=== PATIENT | female | born 1970 | race Caucasian/White ===

== ENCOUNTER 2017-10-10 02:36 | Emergency (ER) | payer MEDICAID ==
[~2017-10-10] VITALS: Ht 165.1 cm; Wt 75.2 kg
[~2017-10-10 02:36] MED LIST: HYDR-565 PO; LEVO500T2 PO; OXYB5TAB11 PO; TAMS0.4C32 PO
[2017-10-10] MEDS ORDERED: ketorolac trometh. 30mg/ml inj. IM ONE (02:55)
[2017-10-10 03:28] LABS: CLARITY,URINE SLIGHTLY CLOUDY (Clear); COLOR,URINE YELLOW (Yellow); GLUCOSE, URINE NEGATIVE (Neg); KETONES,URINE NEGATIVE (Neg); LEUKOCYTE ESTERASE ,URINE SMALL (Neg); NITRITES, URINE POSITIVE (Neg); OCCULT BLOOD,URINE SMALL (Neg); PROTEIN,URINE TRACE mg/dl (Neg); UROBILINOGEN,URINE 0.2 E.U/dL (0.2-1.0)
[2017-10-10 03:39] LABS: UA COLLECTION TYPE CLN CATCH MIDSTREAM
[2017-10-10 03:40] LABS: BACTERIA,URINE 1+ /HPF (Neg); SQUAMOUS EPITHELIAL CELL,UR FEW /LPF (FEW)
[2017-10-10 03:55] VITALS: BP 122/76
[2017-10-10] MEDS ORDERED: CEPH500C5 PO (04:00)
[2017-10-10] MEDS ORDERED: cephalexin 250mg capsule PO ONE (04:00)
== END 2017-10-10 04:26 | disposition home or self-care (01) ==
LOC: ER 02:37
DX: R10.32 Left lower quadrant pain (principal); R11.0 Nausea; F17.200 Nicotine dependence, unspecified, uncomplicated; Z87.442 Personal history of urinary calculi; Z90.49 Acquired absence of other specified parts of digestive tract; Z90.710 Acquired absence of both cervix and uterus; Z98.890 Other specified postprocedural states; Z86.19 Personal history of other infectious and parasitic diseases; Z79.899 Other long term (current) drug therapy
CPT/HCPCS: 81001; 87088; 96372; 99284; J1885

== ENCOUNTER 2019-09-16 20:20 | Emergency (ER) | payer MEDICAID ==
[~2019-09-16] VITALS: Ht 165.1 cm; Wt 80.0 kg
[~2019-09-16 20:20] MED LIST changes: +HYDR-4353 PO; -HYDR-565 PO; -OXYB5TAB11 PO; +OXYB5TAB16 PO
[2019-09-16] MEDS ORDERED: propofol 10mg/ml 20ml vial IV ONE (21:25)
[2019-09-16] MEDS ORDERED: morphine 4 MG/ML inj SYRINge IV ONE (21:25)
[2019-09-16] MEDS ORDERED: HYDR-3965 PO (22:22)
--- NOTE | 2019-09-16 22:42 | NUR ---
DURING MODERATE SEDATION, STEPHEN ARIAS GAVE TOTAL 200MG PROPOFOL IV. EDMD PULLED FROM AVAILABLE PREVIOUS VIAL AND ADMINISTERED. UNABLE TO INPUT ORDER IN EMAR NOT AVAILABLE.
[2019-09-16 22:45] VITALS: BP 130/82
== END 2019-09-16 22:58 | disposition home or self-care (01) ==
LOC: ER 20:21
DX: S43.004A Unspecified dislocation of right shoulder joint, initial encounter (principal); M25.511 Pain in right shoulder; F17.200 Nicotine dependence, unspecified, uncomplicated; Z86.19 Personal history of other infectious and parasitic diseases; Z87.11 Personal history of peptic ulcer disease; Z87.442 Personal history of urinary calculi; Z87.440 Personal history of urinary (tract) infections; Z90.49 Acquired absence of other specified parts of digestive tract; Z90.710 Acquired absence of both cervix and uterus; Z98.890 Other specified postprocedural states; Z79.2 Long term (current) use of antibiotics; Z79.899 Other long term (current) drug therapy; W01.0XXA Fall on same level from slipping, tripping and stumbling without subsequent striking against object, initial encounter; Y93.89 Activity, other specified; Y92.89 Other specified places as the place of occurrence of the external cause; Y99.8 Other external cause status
CPT/HCPCS: 23650; 73030; 96374; 99152; 99153; 99285; J2270; 94760

== ENCOUNTER 2021-10-06 20:50 | Emergency (ER) | payer MEDICAID ==
[~2021-10-06] VITALS: Ht 165.1 cm; Wt 90.3 kg
[2021-10-06 21:23] LABS: BASOPHILS # (AUTO) 0.1 X10'3 (0-0.2); BASOPHILS % (AUTO) 0.6 % (0-1); EOSINOPHILS # (AUTO) 0.1 X10'3 (0-0.9); EOSINOPHILS % (AUTO) 0.9 % (0-6); HEMATOCRIT 44.6 % (35.0-45.0); HEMOGLOBIN 14.6 g/dl (12.0-16.0); LYMPHOCYTES # (AUTO) 3.2 X10'3 (1.1-4.8); LYMPHOCYTES % (AUTO) 28.1 % (21-51); MEAN CORPUSCULAR HEMOGLOBIN 28.6 PG (27.0-31.0); MEAN CORPUSCULAR HGB CONC 32.7 g/dL (33.0-36.5); MEAN CORPUSCULAR VOLUME 87.4 FL (78-98); MEAN PLATELET VOLUME 6.9 FL (7.4-10.4); MONOCYTES % (AUTO) 8.4 % (2-12); NEUTROPHILS # (AUTO) 7.1 X10'3 (1.8-7.7); PLATELET COUNT 358 X10'3 (140-440); WHITE BLOOD COUNT 11.5 X10'3 (4.5-11.0)
[2021-10-06 21:38] LABS: ALANINE AMINOTRANSFERASE 22 U/L (12-78); ALBUMIN 3.4 G/DL (3.4-5.0); ALBUMIN/GLOBULIN RATIO 0.8 (1.1-1.5); ALKALINE PHOSPHATASE 137 IU/L (46-116); ANION GAP 10 (8-16); ASPARTATE AMINO TRANSFERASE 26 U/L (10-37); BILIRUBIN,TOTAL 0.6 MG/DL (0.1-1.0); BLOOD UREA NITROGEN 15 MG/DL (7-18); BUN/CREATININE RATIO 12.8 (6.6-38.0); CHLORIDE 105 MMOL/L (99-107); CREATININE 1.17 MG/DL (0.40-0.90); GLUCOSE 132 MG/DL (70-104); POTASSIUM 3.9 MMOL/L (3.5-5.1); SODIUM 141 MMOL/L (135-145); TOTAL PROTEIN 7.8 G/DL (6.4-8.2); eGFR 49 ML/MIN
[2021-10-06 21:47] LABS: LIPASE 72 U/L (73-393)
[2021-10-06 22:51] VITALS: BP 151/111
[2021-10-06] MEDS ORDERED: FURO-150 PO (23:09)
[2021-10-06] MEDS ORDERED: ALBU8.5H17 INH (23:09)
[2021-10-06] MEDS ORDERED: furosemide 20MG tablet PO ONE (23:10)
[2021-10-06 23:12] LABS: UA COLLECTION TYPE CLN CATCH MIDSTREAM
[2021-10-06 23:13] LABS: CLARITY,URINE SLIGHTLY CLOUDY (Clear); COLOR,URINE YELLOW (Yellow); GLUCOSE, URINE NEGATIVE (Neg); KETONES,URINE NEGATIVE (Neg); LEUKOCYTE ESTERASE ,URINE SMALL (Neg); NITRITES, URINE POSITIVE (Neg); OCCULT BLOOD,URINE MODERATE (Neg); PROTEIN,URINE 100 mg/dl (Neg)
[2021-10-06 23:20] LABS: BACTERIA,URINE 4+ /HPF (Neg); RBC,URINE 0-2 /HPF (0-2); SQUAMOUS EPITHELIAL CELL,UR MODERATE /LPF (FEW); WBC,URINE 50-100 /HPF (0-4)
[2021-10-06 23:21] LABS: WBC CLUMPS,URINE FEW /HPF (NEGATIVE)
[2021-10-06] MEDS ORDERED: CEPH250T PO (23:50)
== END 2021-10-07 01:40 | disposition home or self-care (01) ==
LOC: ER 20:51
DX: R06.02 Shortness of breath (principal); N39.0 Urinary tract infection, site not specified; E11.9 Type 2 diabetes mellitus without complications; F17.200 Nicotine dependence, unspecified, uncomplicated; Z90.49 Acquired absence of other specified parts of digestive tract; Z90.710 Acquired absence of both cervix and uterus
CPT/HCPCS: 36415; 71045; 80053; 81001; 83690; 83880; 84484; 85025; 87077; 87088; 87186; 93005; 99285